=== PATIENT | female | born 1955 | race Caucasian/White ===

== ENCOUNTER → 2024-11-10 10:51 | Outpatient (REF) | payer MEDICARE, BC, SELFPAY ==
[2024-11-10 12:03] LABS: Hematocrit 32.3 % (37.0-47.0); Hemoglobin 10.0 g/dL (12.0-16.0); Mean Corp Hgb Conc. 31.0 g/dL (33.0-37.0); Mean Corpuscular Volume 78.8 fL (81.0-99.0); Nucleated Red Blood Cells % 0 %; Platelet Count 324 10^3/uL (130-400); Red Cell Dist. Width 18.4 % (11.5-14.5)
[2024-11-10 12:21] LABS: ALT (SGPT) 14 U/L (0-35); AST (SGOT) 23 U/L (14-36); Albumin 4.3 g/dl (3.5-5.0); Alkaline Phosphatase 84 U/L (38-126); Blood Urea Nitrogen 14 mg/dl (7-17); Calcium 9.1 mg/dl (8.4-10.2); Carbon Dioxide 28 mmol/L (22-30); Chloride 107 mmol/L (98-107); Glucose 92 mg/dl (70-99); HDL Cholesterol 66 mg/dl; LDL Cholesterol, Calculated 106 mg/dl; Potassium 4.8 mmol/L (3.5-5.1); Sodium 139 mmol/L (135-145); Total Protein 6.6 g/dl (6.3-8.2); Very Low Density Lipoprotein 13 mg/dl (0-30); eGFR > 60.00
[2024-11-10 12:48] LABS: TSH 3.12 uIU/ml (0.47-4.68)
== END ==
LOC: REG 10:51
PROVIDERS: ATTENDING PHYSICIAN Internal Medicine
DX: R06.00 Dyspnea, unspecified (principal); Z00.00 Encounter for general adult medical examination without abnormal findings; R53.83 Other fatigue; E78.5 Hyperlipidemia, unspecified; R07.81 Pleurodynia; R07.89 Other chest pain
CPT/HCPCS: 36415; 71046; 80053; 80061; 84443; 85025

== ENCOUNTER → 2024-11-12 11:52 | Outpatient (REF) | payer MEDICARE, BC, SELFPAY ==
[2024-11-12 12:33] LABS: Hematocrit 32.0 % (37.0-47.0); Hemoglobin 10.0 g/dL (12.0-16.0); Mean Corp Hgb Conc. 31.3 g/dL (33.0-37.0); Mean Corpuscular Volume 77.9 fL (81.0-99.0); Nucleated Red Blood Cells % 0 %; Platelet Count 327 10^3/uL (130-400); Red Cell Dist. Width 18.1 % (11.5-14.5)
[2024-11-12 13:27] LABS: Ferritin 5.9 ng/ml (11.1-264.0)
[2024-11-12 13:41] LABS: Vitamin B12 359 pg/ml (239-931)
== END ==
LOC: REG 11:52
PROVIDERS: ATTENDING PHYSICIAN Internal Medicine
DX: D64.9 Anemia, unspecified (principal); E53.9 Vitamin B deficiency, unspecified; D51.9 Vitamin B12 deficiency anemia, unspecified
CPT/HCPCS: 36415; 82607; 82728; 85025

== ENCOUNTER 2024-12-05 06:33 | Day surgery (SDC) | payer MEDICARE, BC, SELFPAY | END 2024-12-05 14:53 | disposition home or self-care (01) | LOC: GI 06:33 | PROVIDERS: ATTENDING PHYSICIAN Internal Medicine Gastroenterology | DX: R13.10 Dysphagia, unspecified (principal); K22.2 Esophageal obstruction; K44.9 Diaphragmatic hernia without obstruction or gangrene; K21.00 Gastro-esophageal reflux disease with esophagitis, without bleeding | CPT/HCPCS: 43249 ==

== ENCOUNTER 2025-01-02 06:26 | Day surgery (SDC) | payer MEDICARE, BC, SELFPAY | END 2025-01-02 14:16 | disposition home or self-care (01) | LOC: GI 06:26 | PROVIDERS: ATTENDING PHYSICIAN Internal Medicine Gastroenterology | DX: K57.30 Diverticulosis of large intestine without perforation or abscess without bleeding (principal); K64.8 Other hemorrhoids; D50.9 Iron deficiency anemia, unspecified | CPT/HCPCS: 45378 ==

== ENCOUNTER → 2025-01-19 15:30 | Outpatient (REF) | payer MEDICARE, BC, SELFPAY ==
[2025-01-19 15:55] LABS: Hematocrit 38.8 % (37.0-47.0); Hemoglobin 12.7 g/dL (12.0-16.0); Mean Corp Hgb Conc. 32.7 g/dL (33.0-37.0); Mean Corpuscular Volume 85.7 fL (81.0-99.0); Platelet Count 268 10^3/uL (130-400); Red Cell Dist. Width 19.2 % (11.5-14.5)
[2025-01-19 16:53] LABS: Ferritin 12.9 ng/ml (11.1-264.0)
== END ==
LOC: REG 15:30
PROVIDERS: ATTENDING PHYSICIAN Internal Medicine
DX: D50.9 Iron deficiency anemia, unspecified (principal)
CPT/HCPCS: 36415; 82728; 85027